=== PATIENT | female | born 1985 | race Caucasian/White ===

== ENCOUNTER 2016-12-25 16:11 | Outpatient (CLI) | payer BC, MEDICAID ==
[~2016-12-25] VITALS: Ht 165.1 cm; Wt 73.1 kg
[2016-12-25 16:38] VITALS: BP 106/73; PULSE 100; RESP 18
[2016-12-25] MEDS ORDERED: PRENAT PO (16:40)
[2016-12-25] MEDS ORDERED: FERR134T PO (16:41)
[2016-12-25] MEDS ORDERED: CALC600T11 PO (16:41)
[2016-12-25] MEDS ORDERED: VITA1CAP PO (16:42)
--- NOTE | 2016-12-25 17:45 | RADRPT ---
PROCEDURE: OB ultrasound for biophysical profile with ISA. CLINICAL INDICATION: Decreased movements. TECHNIQUE: Multiple sonographic images of the gravid uterus were obtained. The images were review ed on a PACS workstation. COMPARISON: Ultrasounds dated 11/19/2016 and 07/29/2016. FINDINGS: breathing movement = 2/2 tone = 2/2 motion = 2/2 ISA = 2/2 There is a single viable intrauterine gestation with cardiac and a heart rate of 133 bpm. Ther e is a cephalic presentation and an anterior, grade 1/2 placenta. There is no evidence of abruption or placenta previa. ISA = 11.2 cm IMPRESSION: 1. Single viable intrauterine gestation. 2. Biophysical profile = 8/8. 3. ISA = 11.2 cm. RPTAT: GG .Fausto Dietrich MD, MD Date Time Electronically viewed and signed by .Fausto Dietrich MD, MD on 12/25/2016 17:45 .P/
[2016-12-25 17:52] LABS: ADD SCAN DIFF NO
[2016-12-25 17:55] LABS: BASOPHILS % 0.3 % (0.0-2.0); EOSINOPHILS # 0.1 10^3/ul (0.0-0.5); EOSINOPHILS % 0.8 % (0.0-7.0); HEMOGLOBIN 12.1 g/dl (12.0-16.0); LYMPHOCYTES # 1.9 10^3/ul (0.8-2.9); LYMPHOCYTES % 23.8 % (15.0-51.0); MEAN CORPUSCULAR HEMOGLOBIN 32.4 pg (29.0-33.0); MEAN CORPUSCULAR HGB CONC 34.6 g/dl (32.0-37.0); MEAN CORPUSCULAR VOLUME 93.8 fl (82.0-101.0); MONOCYTE # 0.6 10^3/ul (0.3-0.9); MONOCYTES % 7.5 % (0.0-11.0); NEUTROPHIL # 5.2 10^3/ul (1.6-7.5); NEUTROPHILS % 67.1 % (39.0-77.0); PLATELET COUNT 153 10^3/UL (140-415); RED BLOOD COUNT 3.73 10^6/ul (4.20-5.40); RED CELL DISTRIBUTION WIDTH 12.8 % (11.5-14.5); WHITE BLOOD COUNT 7.8 10^3/ul (4.8-10.8)
[2016-12-25 18:06] LABS: INR 0.9; PROTIME 12.1 Sec (12.2-14.2); PT RATIO 0.9
--- NOTE | 2016-12-25 18:55 | CONS ---
Date/Time of Note Date/Time of Note DATE: 12/25/16 TIME: 18:39 Consultation Date/Type/Reason Admit Date/Time December 25, 2016 OB triage consult Initial Consult Date December 25, 2016 Reason for Consultation This patient is a 31 years old primigravida with due date of February 06, 2017 which makes her 33 weeks and 6 days she came in in OB triage area due to low movement or what she describes as no movement since this morning In reviewing her past medical history she recently [place] she says she is allergic to penicillin and give a history of hypothyroidism she just recently started to go to obstetrical's clinic of Dr. Lim On examination she is a well-developed well-nourished lady third trimester her blood pressure 106/73 pulse rate 100 temperature 98.3 oxygen saturation 96% Because she does not have any lab study with her we performed few of these studies including: type and Rh rubella HIV hepatitis test the result of the laboratory studies will be ready tomorrow the ultrasound study that was performed showed single viable intrauterine gestation cardiac activity of 133 bpm cephalic presentation and grade 1/2 + no evidence of a proximal you her ISA was 11.2 cm PE: Her ear nose and throat appears to be normal . neck is normal no neck vein distention no thyromegaly at this time. her chest is clear abdomen is soft very rare contraction. heart tone is normal and tracing with excellent variability and acceleration no evidence of any deceleration Pelvic exam was not performed at this visit although she is not complaining of any discharge or bleeding extremities are normal no edema no varicosities knee-jerk reflex or normal 24 HR Interval Summary Constitutional: No chills, No diaphoresis, No disoriented, No febrile, No improved, No no complaints, No other, No poor po, No requiring IVF, No requiring O2 Detailed Summary Eyes: No discharge, No no complaints, No other, No pain, No redness, No visual change ENT: No bleeding, No congestion, No discharge, No dysphagia, No no complaints, No other, No pain, No sore throat Respiratory: No cough, No no complaints, No other, No pain, No pleuritic pain, No shortness of breath, No sputum, No wheezing Cardiovascular: No chest pain, No edema, No lightheadedness, No no complaints, No orthopenea, No other, No palpitations, No paroxysmal nocturnal dyspnea Gastrointestinal: No blood, No constipation, No decreased appetite, No diarrhea , No flatus, No nausea, No no complaints, No other, No pain, No passing stool, No vomiting Genitourinary: No bleeding, No discharge, No dysuria, No flank pain, No hematuria, No no complaints, No other Musculoskeletal: No back pain, No bone/joint pain, No neck pain, No no complaints, No other, No restricted range of motion, No swelling Skin: other (Knee-jerk reflex is 1+), No bruising, No erythema, No laceration, No no complaints, No pruritis, No rash, No skin lesions Neurologic: No confusion, No dizziness, No focal-weakness, No headache, No no complaints, No other, No seizure, No syncope Endocrine: No dry skin, No no complaints, No other, No polydypsia, No polyuria , No temp intolerance Lymphatic: No adenopathy, No lymphadema, No no complaints, No other, No tender nodes Exam/Review of Systems Vital Signs Vitals Vital Signs Date Time Temp Pulse Resp B/P Pulse Ox O2 Delivery O2 Flow Rate FiO2 12/25/16 16:38 98.3 100 18 106/73 96 Room Air Results Result Diagram: 12/25/16 1722 Results 24 hrs Laboratory Tests Test 12/25/16 17:22 Activated Partial Thromboplast Time 27.0 Basophils # 0.0 Basophils % 0.3 Eosinophils # 0.1 Eosinophils % 0.8 Hematocrit 35.0 L Hemoglobin 12.1 INR International Normalized Ratio 0.90 Lymphocytes # 1.9 Lymphocytes % 23.8 Mean Corpuscular Hemoglobin 32.4 Mean Corpuscular Hemoglobin Concent 34.6 Mean Corpuscular Volume 93.8 Mean Platelet Volume 11.0 H Monocytes # 0.6 Monocytes % 7.5 Neutrophils # 5.2 Neutrophils % 67.1 Nucleated Red Blood Cells # 0.0 Nucleated Red Blood Cells % 0.0 Platelet Count 153 Prothrombin Time 12.1 L Prothrombin Time Ratio 0.9 Red Blood Count 3.73 L Red Cell Distribution Width 12.8 White Blood Count 7.8 MONICA UREÑA MD Dec 25, 2016 18:54
--- NOTE | 2016-12-25 19:03 | TRIAGE ---
OB Triage Datetime Report Generated by CPN: 12/25/2016 19:03 Datetime: 12/25/2016 18:34 Labor Evaluation Frequency: 0 Monitor Mode: External Pattern: Normal: <= 5 Contractions in 10 Minutes Resting Tone [place]: Relaxed Heart Rate FHR Baseline Rate: 140 FHR Baseline Changes: No Baseline Change Variability: Moderate 6-25 bpm Accelerations: 15X15 Decelerations: None Category: Category I Datetime: 12/25/2016 18:16 Headache: Frontal Labor Evaluation Frequency: 0 Monitor Mode: External Pattern: Normal: <= 5 Contractions in 10 Minutes Resting Tone [place]: Relaxed Heart Rate FHR Baseline Rate: 145 FHR Baseline Changes: No Baseline Change Variability: Moderate 6-25 bpm Accelerations: 15X15 Decelerations: None Category: Category I Pain Assessment Pain Scale: 8 Pain Location: Head Pain Assessment Comments: HEADACHE Datetime: 12/25/2016 16:42 Labor Evaluation Frequency: 0 Monitor Mode: External Pattern: Normal: <= 5 Contractions in 10 Minutes Resting Tone [place]: Relaxed Heart Rate FHR Baseline Rate: 140 Monitor Mode: External [place] FHR Baseline Changes: No Baseline Change Variability: Moderate 6-25 bpm Accelerations: 10X10 Decelerations: None Datetime: 12/25/2016 16:28 Time of Arrival: 12/25/2016 16:05 EGA: 33.6 Arrived By: Ambulatory Arrived From: Dr. Ruiz Chief Complaint: NO MOVEMENT SINCE LAST NIGHT Movement: Absent Rupture of Membranes: Denies Vaginal Bleeding: None Vaginal Discharge: Present Recent Sexual Intercouse: Denies Abdominal Trauma: Not Applicable Patient Complaints: Headache Additional Patient Complaints: HEADACHE - FRONTAL 5/10 Time Provider Notified: 12/25/2016 17:01 Provider Notified: DR. NUNEZ Initial Plan: EFM x2, BPP, LAB WORK Datetime: 12/25/2016 16:23 Stage of : OB Triage Assessment Type: Triage Maternal Assessment Level of Consciousness: Fully Conscious Headache: Denies Blurred Vision: No Respiratory Effort: Unlabored; Regular Rhythm; Equal Expansion Breath Sounds, Left: Clear and Equal Breath Sounds, Right: Clear and Equal Nausea/Vomiting: Denies RUQ Epigastric Pain: Denies Lower Extremities Edema: Bilateral Lower Extremities Degree: 1+ Upper Extremities Edema: None Degree: None Facial Edema: None Temperature Route: Oral Fall Risk Assessment History of Falling: (0) No Secondary Diagnosis: (0) No Ambulatory Aid: (0) Bedrest/Nurse Assist IV Therapy: (0) No Gait: (0) Normal/Bedrest/Immobile Mental Status: (0) Oriented to Own Ability Fall Score: 0 Fall Risk Score Definition: No Risk: No action required Pain Assessment Pain Scale: 5 Pain Presence: Intermittent Pain Type: Pressure; Ache Pain Location: Head
[2016-12-27 15:41] LABS: RUBELLA ANTIBODY - IGG 4.92
== END 2016-12-25 18:50 | disposition home or self-care (01) ==
LOC: L-D 16:11 → OBT 16:11
PROVIDERS: ATTEND Obstetrics & Gynecology
DX: O36.8130 Decreased fetal movements, third trimester, not applicable or unspecified (principal); Z3A.33 33 weeks gestation of pregnancy
CPT/HCPCS: 36415; 76818; 85025; 85610; 85730; 86592; 86703; 86762; 86850; 86900; 86901; 87340; Z7500; G0463

== ENCOUNTER 2017-01-21 14:07 | Inpatient (IN) | payer BC ==
[~2017-01-21] VITALS: Ht 165.1 cm; Wt 74.0 kg
[~2017-01-21 14:07] MED LIST: CALC600T11 PO; FERR134T PO; PRENAT PO; VITA1CAP PO
[2017-01-21 15:03] VITALS: BP 110/69; PULSE 95; RESP 18; Ht 165.1 cm; Wt 74.0 kg
--- NOTE | 2017-01-21 15:31 | TRIAGE ---
OB Triage Datetime Report Generated by CPN: 01/21/2017 15:31 Datetime: 01/21/2017 15:15 EGA: 38.3 Datetime: 01/21/2017 15:07 Vaginal Exam Dilatation (cms): 3.5 Effacement (%): 70 Station: -2 Exam By: khemani Vaginal Bleeding: Scant Cervix, Consistency: Soft Cervix, Position: Midposition Datetime: 01/21/2017 15:01 Assessment Type: Triage Maternal Assessment Level of Consciousness: Fully Conscious DTR's/Clonus: DTRs 2+; No Clonus Headache: Denies Blurred Vision: No Respiratory Effort: Unlabored; Regular Rhythm; Equal Expansion Breath Sounds, Left: Clear and Equal Breath Sounds, Right: Clear and Equal Nausea/Vomiting: Denies RUQ Epigastric Pain: Denies Lower Extremities Edema: None Degree: None Upper Extremities Edema: None Degree: None Facial Edema: None Fall Risk Assessment History of Falling: (0) No Secondary Diagnosis: (0) No Ambulatory Aid: (0) Bedrest/Nurse Assist IV Therapy: (0) No Gait: (0) Normal/Bedrest/Immobile Mental Status: (0) Oriented to Own Ability Fall Score: 0 Fall Risk Score Definition: No Risk: No action required Datetime: 01/21/2017 14:59 Time of Arrival: 01/21/2017 14:00 EGA: 37.5 Arrived By: Ambulatory Arrived From: Home Chief Complaint: C/O UC'S Movement: Present Contractions: Irregular Time Contractions Began: 01/21/2017 04:00 Rupture of Membranes: Denies Vaginal Bleeding: Scant Vaginal Discharge: Denies Recent Sexual Intercouse: Denies Abdominal Trauma: Not Applicable Patient Complaints: Contractions; Cramping Time Provider Notified: 01/21/2017 15:17 Provider Notified: ABUSLEME Initial Plan: EFM/SVE Datetime: 12/25/2016 16:28 EGA: 33.6 Datetime: 12/25/2016 16:23 Fall Score: 0 Fall Risk Score Definition: No Risk: No action required
[2017-01-21] MEDS ORDERED: LACTATED RINGER'S 1,000 ML IV PRN (16:16)
[2017-01-21] MEDS ORDERED: IBUPROFEN 600 MG TAB PO PRN (16:30)
[2017-01-21] MEDS ORDERED: LIDOCAINE 1% (MPF) 30 ML INJ INJ PRN (16:30)
[2017-01-21] MEDS ORDERED: MISOPROSTOL 200 MCG TAB PR PRN (16:30)
[2017-01-21] MEDS ORDERED: CARBOPROST 250 MCG INJ IM PRN (16:30)
[2017-01-21] MEDS ORDERED: METHYLERGONOVINE 0.2 MG INJ IM PRN (16:30)
[2017-01-21] MEDS ORDERED: OXYTOCIN 30 UNITS/LR 500 ML IV PRN (16:30)
[2017-01-21] MEDS ORDERED: OXYTOCIN 30 UNITS/LR 500 ML IV SCH ×2 (16:30)
[2017-01-21] MEDS ORDERED: BUTORPHANOL 2 MG INJ IV PRN (16:30)
[2017-01-21] MEDS: LACTATED RINGER'S 1,000 ML IV SCH ×2 (16:31→20:46)
[2017-01-21 16:35] LABS: ADD SCAN DIFF NO
[2017-01-21 16:38] LABS: BASOPHILS % 0.3 % (0.0-2.0); EOSINOPHILS % 0.4 % (0.0-7.0); HEMATOCRIT 34.8 % (37.0-47.0); HEMOGLOBIN 12.2 g/dl (12.0-16.0); LYMPHOCYTES # 1.9 10^3/ul (0.8-2.9); LYMPHOCYTES % 23.5 % (15.0-51.0); MEAN CORPUSCULAR HEMOGLOBIN 32.8 pg (29.0-33.0); MEAN CORPUSCULAR HGB CONC 35.1 g/dl (32.0-37.0); MEAN CORPUSCULAR VOLUME 93.5 fl (82.0-101.0); MEAN PLATELET VOLUME 11.2 fl (7.4-10.4); MONOCYTE # 0.6 10^3/ul (0.3-0.9); NEUTROPHIL # 5.3 10^3/ul (1.6-7.5); NEUTROPHILS % 67.4 % (39.0-77.0); PLATELET COUNT 151 10^3/UL (140-415); RED BLOOD COUNT 3.72 10^6/ul (4.20-5.40); RED CELL DISTRIBUTION WIDTH 13.4 % (11.5-14.5); WHITE BLOOD COUNT 7.9 10^3/ul (4.8-10.8)
[2017-01-21 17:02] LABS: INR 0.89; PT RATIO 0.9
[2017-01-21 17:03] LABS: PARTIAL THROMBOPLASTIN TIME 27.3 Sec (25.0-35.0)
[2017-01-21] MEDS ORDERED: FENTAnyl 2MCG/ML-ROPIV 0.2% 100 ML ONE (21:47)
[2017-01-21] MEDS ORDERED: HYDROmorphONE 1 MG/ML SYG IV PRN ×2 (23:30)
[2017-01-21] MEDS ORDERED: DIPHENHYDRAMINE 50 MG INJ IV PRN (23:30)
[2017-01-21] MEDS ORDERED: NALOXONE (0.4 MG/ML) INJ IV PRN (23:30)
[2017-01-21] MEDS ORDERED: ZOLPIDEM 5 MG TAB PO PRN (23:30)
[2017-01-21] MEDS ORDERED: FENTAnyl 2MCG/ML-ROPIV 0.2% 100 ML BAG EPI SCH (23:30)
[2017-01-21] MEDS ORDERED: ONDANSETRON 4 MG INJ IV PRN (23:30)
[2017-01-22] MEDS ORDERED: ACETAMINOPHEN 325 MG TAB PO ONE (04:00)
[2017-01-22] MEDS ORDERED: CLINDAMYCIN 900 MG/D5W (PMX) 50 ML IVPB SCH (04:00)
[2017-01-22] MEDS ORDERED: AMPICILLIN 2 GM/NS (PMX) 100 ML IVPB ONE (04:00)
[2017-01-22] MEDS ORDERED: AL HYDROX/MG HYDROX/SIMETH 30 ML CUP PO ONE (05:30)
--- NOTE | 2017-01-22 06:58 | LDN ---
Date/Time of Note Date/Time of Note DATE: 01/22/17 TIME: 06:53 Delivery Summary vacuum assisted delivery due to maternal fatigue midline episiotomy repaired no complications Weeks of Gestation 38 Assisted Vaginal Delivery: Vacuum Placenta Delivered: Spontaneously Meconium: none Episiotomy: Yes Indication for episiotomy impending vaginal laceration, tight perineum Anesthesia type: Epidural Sponge & Needle done & correct: Yes All needle counts correct: Yes Any foreign bodies felt in the: No Problems: Infant Delivery Information Sex Sex: male Apgars 1 Minute: 9 Suctioning Nose & mouth suctioned at ted: Yes Umbilical Cord Umbilical cord with: 3 Vessels Cord presentations: nuchal cord Nuchal cord present X: 1 Cord Blood was obtained: Yes Mother & Baby Disposition Disposition Mom & Baby to Maternity; Good: Yes DEBO NUNEZ MD Jan 22, 2017 06:58
[2017-01-22] MEDS ORDERED: ACETAMINOPHEN 325 MG TAB PO PRN ×2 (07:00)
[2017-01-22] MEDS ORDERED: CARBOPROST 250 MCG INJ IM PRN (07:00)
[2017-01-22] MEDS ORDERED: ONDANSETRON 4 MG INJ IV PRN (07:00)
[2017-01-22] MEDS ORDERED: ACETAMINOPHEN/CODEINE #3 TAB PO PRN (07:00)
[2017-01-22] MEDS ORDERED: LANOLIN 7 GM TUBE TOP PRN (07:00)
[2017-01-22] MEDS ORDERED: METHYLERGONOVINE 0.2 MG INJ IM PRN (07:00)
[2017-01-22] MEDS ORDERED: MISOPROSTOL 200 MCG TAB PR PRN (07:00)
[2017-01-22] MEDS ORDERED: DIPHENHYDRAMINE 25 MG CAP PO PRN (07:00)
[2017-01-22] MEDS ORDERED: OXYTOCIN 30 UNITS/LR 500 ML IV PRN (07:00)
[2017-01-22] MEDS ORDERED: DIBUCAINE 1% 30 GM OINT PR PRN (07:00)
[2017-01-22 09:00] VITALS: BP 118/69; PULSE 95; RESP 16
[2017-01-22] MEDS: BENZOCAINE 20% 56 ML SPRAY TOP PRN (10:06)
[2017-01-22] MEDS: SENNA/DOCUSATE NA (8.6MG/50MG) TAB PO SCH ×2 (10:07→21:00)
[2017-01-22] MEDS: ACETAMINOPHEN/CODEINE #3 TAB PO PRN (10:07)
[2017-01-22 10:41] LABS: ADD SCAN DIFF NO
[2017-01-22 10:44] LABS: BASOPHILS % 0.2 % (0.0-2.0); HEMATOCRIT 32.3 % (37.0-47.0); HEMOGLOBIN 11.4 g/dl (12.0-16.0); LYMPHOCYTES # 1.4 10^3/ul (0.8-2.9); LYMPHOCYTES % 9.9 % (15.0-51.0); MEAN CORPUSCULAR HEMOGLOBIN 32.9 pg (29.0-33.0); MEAN CORPUSCULAR HGB CONC 35.3 g/dl (32.0-37.0); MEAN CORPUSCULAR VOLUME 93.4 fl (82.0-101.0); MEAN PLATELET VOLUME 10.8 fl (7.4-10.4); MONOCYTE # 0.9 10^3/ul (0.3-0.9); MONOCYTES % 6.4 % (0.0-11.0); NEUTROPHIL # 11.7 10^3/ul (1.6-7.5); NEUTROPHILS % 83.1 % (39.0-77.0); PLATELET COUNT 130 10^3/UL (140-415); RED BLOOD COUNT 3.46 10^6/ul (4.20-5.40); RED CELL DISTRIBUTION WIDTH 13.4 % (11.5-14.5); WHITE BLOOD COUNT 14.1 10^3/ul (4.8-10.8)
[2017-01-22] MEDS: OXYTOCIN 30 UNITS/LR 500 ML IV SCH (10:48)
[2017-01-22] MEDS: IBUPROFEN 800 MG TAB PO SCH ×3 (12:51→23:47)
[2017-01-22 16:00] VITALS: BP 96/49; PULSE 75; RESP 16
[2017-01-22 20:00] VITALS: BP 99/57; PULSE 81; RESP 18
[2017-01-22 23:47] VITALS: BP 99/58; PULSE 80; RESP 17
[2017-01-23 04:00] VITALS: BP 98/55; PULSE 94; RESP 18
[2017-01-23] MEDS: IBUPROFEN 800 MG TAB PO SCH ×4 (05:47→23:34)
[2017-01-23 08:00] VITALS: BP 97/62; PULSE 78; RESP 20
[2017-01-23] MEDS: SENNA/DOCUSATE NA (8.6MG/50MG) TAB PO SCH ×2 (09:00→21:52)
[2017-01-23] MEDS ORDERED: INFLUENZA VIRUS VACCINE 0.5 ML (DISPENSING) IM* ONE (09:00)
[2017-01-23] MEDS: ACETAMINOPHEN/CODEINE #3 TAB PO PRN (15:41)
[2017-01-23] MEDS: BENZOCAINE 20% 56 ML SPRAY TOP PRN (15:42)
[2017-01-23 16:00] VITALS: BP 121/76; PULSE 89; RESP 18
[2017-01-23 19:30] VITALS: BP 113/69; PULSE 94; RESP 18
--- NOTE | 2017-01-24 01:30 | PN ---
Date/Time of Note Date/Time of Note DATE: 01/23/2017 TIME: 11 pm OB Subjective Subjective Subjective day 1 post vaginal delivery no complaints uterus contracted breast feeding lochia normal OB Objective HEENT: WNL Heart: Rhythm Normal Lungs: Clear, Equal Abdomen: WNL Extremities: Normal Reflexes: Normal DEBO NUNEZ MD Jan 24, 2017 01:30
[2017-01-24 03:30] VITALS: BP 112/76; PULSE 85; RESP 19
[2017-01-24] MEDS: IBUPROFEN 800 MG TAB PO SCH ×2 (05:53→12:00)
[2017-01-24 08:00] VITALS: BP_SYST 111; BP_SYST 119; BP_DIAS 67; BP_DIAS 71; PULSE 86; PULSE 89; RESP 18
[2017-01-24] MEDS ORDERED: DIPHTH/TET/ACEL PERTUSS (ADULT) 0.5 ML VIAL IM* ONE (09:00)
[2017-01-24] MEDS ORDERED: VARICELLA VACCINE LIVE/PF 1,350 UNIT/0.5 ML ML SC* ONE (09:00)
[2017-01-24] MEDS: SENNA/DOCUSATE NA (8.6MG/50MG) TAB PO SCH (09:09)
[2017-01-24] MEDS: BENZOCAINE 20% 56 ML SPRAY TOP PRN (09:10)
--- NOTE | 2017-01-24 14:28 | PD.PPDC ---
FACSIMILE OPERATOR Discharge Instruction Condition Patient Condition: Good Diet Diet: Resume Regular Diet Activity/Restrictions Activity: Normal Activity May Shower Restrictions: No Exercising No Lifting No Driving No Sexual Activity Nothing in the Vagina No [place] No Tampons, douche Follow-up Follow-up with Physician: 6 Return to clinic for [employer] [facility] Instructions: Fever greater than 101 Chills Worsening abdominal pain Excessive Vaginal Bleeding More than 2 pads per hour Unable to tolerate diet OB Instructions: Breast Tenderness Depression Blurried Vision Headache Surgical Instructions: Incisional Drainage Incisional Redness DEBO NUNEZ MD Jan 24, 2017 14:28
--- NOTE | 2017-01-24 14:31 | DS ---
Date/Time of Note Date/Time of Note DATE: 01/24/17 TIME: 14:30 Obstetrical Discharge Record Final Diagnosis Final Diagnosis: Term delivered Vaginal Delivery Obstetrical Delivery: Episiotomy, Repaired, Vacuum Extraction Complications Augmentation: Yes Induction: No Condition on Discharge Physical Assessment Voiding: Yes Bowel Movement: Yes Breast: Soft, non-tender, Filling Fundus: Firm Calf Tenderness: No Patient Condition: Good DEBO NUNEZ MD Jan 24, 2017 14:31
[2017-01-24] MEDS: ACETAMINOPHEN/CODEINE #3 TAB PO PRN (14:55)
[2017-01-24 16:00] VITALS: BP 110/65; PULSE 68; RESP 18
== END 2017-01-24 18:35 | disposition home or self-care (01) | DRG 775 ==
LOC: OBT 14:07 → L-D 14:13 → OBT 15:25 → L-D 15:25 → PP1 01-22 08:50
PROVIDERS: ADMIT Obstetrics & Gynecology; ATTEND Obstetrics & Gynecology
PROC: 10D07Z6 Extraction of Products of Conception, Vacuum, Via Natural or Artificial Opening (ICD-10-PCS; principal; 2017-01-22)
PROC: 0W8NXZZ Division of Female Perineum, External Approach (ICD-10-PCS; 2017-01-22)
DX: O69.81X0 Labor and delivery complicated by cord around neck, without compression, not applicable or unspecified (principal); O75.81 Maternal exhaustion complicating labor and delivery; Z3A.38 38 weeks gestation of pregnancy; Z37.0 Single live birth
CPT/HCPCS: 36415; 62319; 85025; 85610; 85730; 86592; 86900; 86901; 87070; 90686; 90715; 90716; 99464; G0463; J0290; J2590; J3010; J7120